=== PATIENT | male | born 1965 | race Caucasian/White ===

== ENCOUNTER 2018-10-19 00:03 | Emergency (ER) | payer SELFPAY ==
[2018-10-19] MEDS: TETRACAINE 0.5% 4 ML OPH RIGHT EYE (00:27)
[2018-10-19] MEDS: TETRACAINE 0.5% 4 ML OPH LEFT EYE (00:27)
== END 2018-10-19 02:12 | disposition left against medical advice (07) ==
LOC: E/R 00:03
DX: T65.891A Toxic effect of other specified substances, accidental (unintentional), initial encounter (principal); H10.211 Acute toxic conjunctivitis, right eye; X58.XXXA Exposure to other specified factors, initial encounter; Y92.9 Unspecified place or not applicable
CPT/HCPCS: 99282